=== PATIENT | male | born 1985 | race Caucasian/White ===

== ENCOUNTER 2024-03-24 17:50 | Emergency (ER) | payer OTHER ==
[~2024-03-24] VITALS: Ht 185.4 cm; Wt 136.0 kg
[2024-03-24 18:01] VITALS: O2SAT 96
[2024-03-24] MEDS ORDERED: AMOX-494 MT (21:40)
[2024-03-24] MEDS ORDERED: IBUP-2029 MT (21:40)
[2024-03-24] MEDS: DEXAMETHASONE 4MG/ML 1ML VIAL IM ONE (21:45)
[2024-03-24] MEDS: KETOROLAC 30MG/ML VIAL IM ONE (21:45)
[2024-03-24 22:00] VITALS: BP 134/76; PULSE 67; RESP 18; TEMP 36.66960; O2SAT 98
== END 2024-03-24 22:00 | disposition home or self-care (01) ==
LOC: ER 17:50
DX: J02.8 Acute pharyngitis due to other specified organisms (principal); E11.9 Type 2 diabetes mellitus without complications
CPT/HCPCS: 99284; 87430; 87070; 96372; J1100; J1885